=== PATIENT | female | born 1990 | race Two or more races ===

== ENCOUNTER 2024-12-07 08:51 | Emergency (ER) | payer MEDICAID, SELFPAY ==
[2024-12-07 08:52] VITALS: BP 134/77; PULSE 74; RESP 18; TEMP 37.7; O2SAT 97
--- NOTE | 2024-12-07 08:56 | EKG_ITS ---
[facility] Test Date: 2024-12-07 Pat Name: COLUMBA MORIN Department: Room: - Gender: Female [employer]: : 1990 Requested By: ED Temporary Provider Order Number: [id number] Reading MD: ED Temporary Provider Measurements Intervals Met[place] Rate: 60 P: 49 NC: 142 QRS: 62 QRSD: 102 T: 44 QT: 391 QTc: 391 Interpretive Statements SINUS RHYTHM Compared to ECG 07/15/2021 11:29:13 Sinus bradycardia no longer present Sinus arrhythmia no longer present /store/[id number].pdf
[2024-12-07 08:59] VITALS: BMI 32.3
--- NOTE | 2024-12-07 09:02 | XR_ITS ---
Examination: AP chest single view TECHNIQUE: AP portable upright chest single view Date and time: December 07, 2024 0913 hours INDICATIONS: Chest pain beginning 2 days ago. FINDINGS: Normal heart size. Lungs are clear. The osseous structures are intact. IMPRESSION: No active disease.
--- NOTE | 2024-12-07 09:17 | PC.NURSE ---
X-RAY AT BEDSIDE FOR PORTABLE X-RAY
[2024-12-07 10:15] VITALS: BP 120/77; PULSE 55; RESP 20; TEMP 37.1; O2SAT 100
[2024-12-07 10:20] LABS: Basophils # (Auto) 0.0 Thou/mm3 (0.0-0.2); Basophils % (Auto) 0 % (0-2.5); Eosinophils # (Auto) 0.1 Thou/mm3 (0.0-0.5); Eosinophils % (Auto) 2 % (0-10); Hematocrit 34.9 % (36.0-46.0); Hemoglobin 12.1 g/dL (12.0-16.0); Immature Granulocytes Auto 0.01 Thou/mm3 (0.00-0.00); Lymphocytes # (Auto) 1.2 Thou/mm3 (1.0-4.8); Lymphocytes % (Auto) 20 % (10-50); Mean Corpuscular HGB Conc 34.7 g/dl (31.0-37.0); Mean Corpuscular Hemoglobin 31.3 pg (25.0-35.0); Mean Corpuscular Volume 90 fL (80-100); Monocytes # (Auto) 0.7 Thou/mm3 (0.0-0.8); Monocytes % (Auto) 12 % (0-12); Neutrophils # (Auto) 3.9 Thou/mm3 (1.8-7.7); Neutrophils % (Auto) 67 % (37-80); Nucleated Red Blood Cell # 0.00 Thou/mm3 (0.00-0.00); Nucleated Red Blood Cell % 0 /100 WBC (0); Platelet Count 177 Thou/mm3 (140-440); RDW Standard Deviation 38.9 fL (36.4-46.3); Red Blood Count 3.86 Miln/mm3 (4.00-5.20); White Blood Count 5.9 Thou/mm3 (3.6-11.0)
[2024-12-07] MEDS: SODIUM CHLORIDE 0.9% 1000 ML 1,000 ML 999 ML IV (10:27)
[2024-12-07 10:33] VITALS: PULSE 63; RESP 100; RESP 12
--- NOTE | 2024-12-07 10:34 | PD.EDCHEST ---
ED Chest Pain RME/HPI General Chief Complaint: Chest Pain Stated Complaint: chest pain Time Seen by Provider: 12/07/24 09:01 Arrival date/time: 12/07/24 08:51 Limitations: no limitations RME / HPI RME / HPI narrative: 34 year old female with history of hypertension presents to the ED for evaluation of intermittent midsternal chest pain beginning 3 days ago, with episodes lasting <1 minute at a time. Accompanied by feeling short of breath and anxious. Patient mentioned she has had recent family relation stress and is seeking counseling regarding that. No other associated symptoms reported. Denies fevers, chills, sweats, abdominal pain, n/v/d, or urinary symptoms. Related Data Allergies Allergy/AdvReac Type Severity Reaction Status Date / Time No Known Allergies Allergy Verified 05/25/22 10:17 Review of Systems Review of Systems Systems Reviewed: All systems reviewed, normal except as documented Past Medical History Past Medical History NEUROLOGIC: Negative Neurological Disorders CARDIAC: Negative Cardiac Disorders RESPIRATORY: Negative Chronic Obstructive Pulmonary Disease (COPD) GASTROINTESTINAL: Negative Gastrointestinal Disorders GENITOURINARY: Negative Genitourinary Disorders REPRODUCTIVE: Positive Previous Pregnancies MUSCULOSKELETAL: Positive Musculoskeletal Disorders ENDOCRINE: Negative Endocrine Disorders (lately blood sugar drops going to see DR hutson) OTHER HISTORY: Positive Hospitalization ( x 2) Family History FAMILY HISTORY: Positive Family Cardiac Disorders and Family Surgery Surgical History SURGICAL: Positive Abdominal Surgery Social History SMOKING STATUS: Current every day smoker SECOND HAND EXPOSURE: No SUBSTANCE USE: marijuana ED Exam General Limitations: Present no limitations General appearance: Present alert and in no apparent distress Head Head exam: Present atraumatic, normocephalic and normal inspection Eye Eye exam: Present normal appearance, PERRL and EOMI ENT ENT exam: Present normal exam, normal oropharynx and mucous membranes moist Neck Neck exam: Present normal inspection, full ROM and trachea midline Chest Chest inspection: Present normal inspection and symmetric chest wall rise Respiratory Respiratory exam: Present normal lung sounds bilaterally Cardiovascular Cardiovascular exam: Present regular rate, normal rhythm and normal heart sounds Abdominal Exam Abdominal exam: Present soft and normal bowel sounds Extremities Exam Extremities exam: Present normal inspection and full ROM Back Exam Back exam: Present normal inspection and full ROM Neurological Exam Neurological exam: Present alert, oriented X3 and CN II-XII intact Psychiatric Psychiatric exam: Present normal affect and normal mood Skin Skin exam: Present warm, dry, intact and normal color Course Quality Measures none Orders Category Date Time Status Bedside COVID-19 Antigen Test NOW Care 12/07/24 09:06 Active Bedside Influenza A&B Antigen Test NOW Care 12/07/24 09:06 Completed Supervisor Education STAT Care 12/07/24 09:02 Active Continuous Pulse Oximetry ONCE Care 12/07/24 09:02 Completed EKG (ED ONLY) *Do not use* NOW Care 12/07/24 08:56 Completed Insert IV STAT Care 12/07/24 09:02 Active EKG (ED Only) Stat Exams 12/07/24 08:56 Draft XR chest 1V portable Stat Exams 12/07/24 09:02 Completed CBC Stat Lab 12/07/24 10:12 Completed Comprehensive Metabolic Panel Stat Lab 12/07/24 10:12 Completed HCG Qualitative,Urine Stat Lab 12/07/24 11:30 Completed Magnesium Stat Lab 12/07/24 10:12 Completed Partial Thromboplastin Time Stat Lab 12/07/24 10:12 Completed Prothrombin Time with INR Stat Lab 12/07/24 10:12 Completed Troponin I Stat Lab 12/07/24 10:12 Completed Morphine* Inj Med 12/07/24 09:02 Active 2 mg IVP Q1H PRN Ondansetron Inj [Zofran Inj] Med 12/07/24 09:02 Discontinued 4 mg IVP X1 ONE Sodium Chloride 0.9% 1000 ml [Ns] 1,000 ml Med 12/07/24 09:02 Discontinued IV 999 mls/hr Oxygen Delivery NOW RT 12/07/24 09:02 Active Vital Signs Vital signs: Vital Signs Temperature 99.9 F 12/07/24 08:52 Pulse Rate 74 12/07/24 08:52 Respiratory Rate 18 12/07/24 08:52 Blood Pressure 134/77 H 12/07/24 08:52 Pulse Oximetry (%) 97 12/07/24 08:52 Oxygen Delivery Method Room Air 12/07/24 08:52 Pulse ox is 97% on room air which is adequate. Chest Pain MDM Narrative MDM Narrative:: Pavithra Pruitt am scribing for and in the presence of Dr. Edwards. Patient data External records reviewed:: [facility] previous records (I reviewed H&P on 05/25/2022. ) Clinical information provided by:: patient Social determinants that could affect healthcare access:: mental health Patient has the following chronic illnesses:: HTN, anxiety? How is presenting disease/condition affected by chronic disease/condition?: exacerbated by Evaluation data The following diagnostics were reviewed and interpreted by me:: lab results, radiology exam(s) and EKG tracing(s) (EKG @ 09:03h Sinus rhythm, rate 80, no acute ischemic changes, no STEMI) Lab and/or radiology exams considered but not ordered:: None Interpretation Summary: Ordering Physician: Robert Edwards MD Date of Service: 12/07/24 Procedure(s): XR chest 1V portable Accession Number(s): [id number] cc: Robert Edwards MD; Carlos Boyd MD; NO PRIMARY/FAMILY,PHYSICIAN~ Examination: AP chest single view TECHNIQUE: AP portable upright chest single view Date and time: December 07, 2024 0913 hours INDICATIONS: Chest pain beginning 2 days ago. FINDINGS: Normal heart size. Lungs are clear. The osseous structures are intact. IMPRESSION: No active disease. Dictated By: Carlos Boyd MD Signed By: <Electronically signed by Carlos Boyd MD in OV> 12/07/24 0943 Medications / Prescriptions Medications or Prescriptions considered but not ordered:: None Medication administrations:: Medication Administration History Morphine Sulfate (Morphine Sulf Inj 4 Mg/Ml Vial) 2 mg IVP Q1H PRN PRN Reason: PAIN Discontinued Medications Sodium Chloride (Ns) 1,000 mls @ 999 mls/hr IV .Q1H1M ONE Stop: 12/07/24 10:02 Last Infusion: 12/07/24 11:30 Dose: Infused Documented By: JORGE ALBERTO Admin: 12/07/24 10:27 Dose: 999 mls/hr Documented By: JORGE ALBERTO Ondansetron HCl (Ondansetron Inj 2 Mg/Ml Inj 2 Ml) 4 mg IVP X1 ONE Stop: 12/07/24 09:03 Last Admin: 12/07/24 10:25 Dose: Not Given Documented By: JORGE ALBERTO Non-Admin Reason: Patient Refused See above Consultations Consultation(s) initiated? (list below): No Diagnosis Chest Pain Differential Diagnosis: stable angina, unstable angina pectoris, atypical chest pain, st elevation myocardial infarction, costochondritis, chest pain, biliary colic and other (anxiety ) Most likely diagnosis given after review of the tests above:: Chest pain Admission Indicated Admission indicated?: not indicated Admission Request Was there a request for admission?: No Disposition Plan Disposition Plan: Discharge Discharge Attestation Discharge Attestation: The patient and all family members were given an opportunity to ask questions and understood the discharge instructions. Discharge instructions specifically effects, indications for sooner follow up or return to the emergency department, and the expected course of current diagnosis. Patient condition: Stable Discharge Plan Plan Patient Disposition: HOME (Self Care) Patient condition on transfer: Stable Prescriptions/Referrals Referrals: No Primary/Family,Physician [Primary Care Provider] - In 1 week Problem List Clinical Impression: Chest pain Patient/Caregiver Discharge Instructions Discharge Activity: activity as tolerated Education Materials: ED Chest Pain, Uncertain Cause Additional Instructions: Follow-up with your primary care doctor. Consider referral to cardiology for stress test. Print Language: Turkmen Stand Alone Forms: Malina Award Info., Patient Portal Info Letter
[2024-12-07 10:44] LABS: INR 1.0 (0.9-1.3); Partial Thromboplastin Time 27.2 Seconds (22.0-36.0); Prothrombin Time 11.1 Seconds (9.0-12.2)
[2024-12-07 10:52] LABS: Alanine Aminotransferase 19 U/L (10-49); Albumin, Serum 4.3 gm/dL (3.5-5.0); Albumin/Globulin Ratio 1.7 (1.2-2.2); Alkaline Phosphatase 47 U/L (46-116); Anion Gap 9 (7-16); Aspartate Amino Transferase 18 U/L (0-34); BUN/Creatinine Ratio 11 Ratio (12-20); Bilirubin,Total 0.6 mg/dL (0.3-1.2); Blood Urea Nitrogen 9 mg/dL (9-23); Calcium 9.8 mg/dL (8.3-10.6); Calcium (Corrected) 9.8 mg/dL (8.5-10.1); Carbon Dioxide 23.9 mMol/L (20.0-31.0); Chloride 108 mMol/L (98-107); Creatinine (Component) 0.8 mg/dL (0.6-1.3); Estimated Creatinine Clearance 126.9 mL/min (>60); Globulin 2.6 gm/dL (2.3-3.5); Glucose 109 mg/dL (74-106); Magnesium 1.8 mg/dL (1.6-2.6); Osmolality,Calculated 280 (275-295); Potassium 4.2 mMol/L (3.4-5.1); Sodium 141 mMol/L (136-145); Total Protein 6.9 gm/dL (5.7-8.2); Troponin I < 0.002 ng/mL (0.0-0.045); eGFR > 60 See Note
[2024-12-07 11:41] LABS: HCG Qualitative,Urine Negative
[2024-12-07 12:45] VITALS: BP 134/78; PULSE 60; RESP 16; O2SAT 100
[2024-12-07 13:25] VITALS: PULSE 60
[2024-12-07 14:26] VITALS: BP 138/83; PULSE 59; RESP 19; O2SAT 100
== END 2024-12-07 14:31 | disposition home or self-care (01) ==
PROVIDERS: Emergency Provider Family Medicine
DX: R07.2 Precordial pain (principal); I10 Essential (primary) hypertension; F17.200 Nicotine dependence, unspecified, uncomplicated
CPT/HCPCS: 36415; 71045; 80053; 81025; 83735; 84484; 85025; 85610; 85730; 87400; 87811; 93005; 96360; 99284; J7030